=== PATIENT | male | born 1985 | race African-American/Black ===

== ENCOUNTER 2018-02-03 22:48 | Emergency (ER) | payer OTHER ==
[2018-02-03 22:56] VITALS: BP 148/78; PULSE 78; RESP 18; TEMP 99.3
--- NOTE | 2018-02-03 23:04 | ED ---
General Adult HPI - General Chief complaint: GI Bleed Stated complaint: blood in stool Time Seen by Provider: 02/03/18 23:03 Source: patient Mode of arrival: ambulatory Limitations: no limitations - History of Present Illness Initial comments: Alfredo is a previously healthy 32-year-old obese -[place] male who presents the emergency department today for evaluation of a single episode of bright red blood per rectum. Alfredo reports that he was in his usual state of health throughout the day today. He had no abdominal pain, he ate his usual diet. He states that this evening he was straining to have a bowel movement. He reports that he usually has to strain a little bit to have a bowel movement. He states that it was not painful but when he wiped he noted there is some dark blood. He took a picture of this and then came to the ER for further evaluation. Patient denies any chest pain, palpitations, lightheadedness, nausea or vomiting. He has no history of GI bleeding the past. He has never been seen by rn surgery icu. He is not on any anticoagulant or antiplatelet medications. Patient denies any receptive anal intercourse or rectal pain. - Related Data Home Medications Medication Instructions Recorded Confirmed Acyclovir Unknown Dose 1 tab PO DAILY 02/03/16 02/07/16 Previous Rx's Medication Instructions Recorded HYDROcodone/APAP 5-325MG [[place] 1 - 2 tab PO Q6HR PRN #20 tab 02/03/16 5-325] Allergies Allergy/AdvReac Type Severity Reaction Status Date / Time No Known Allergies Allergy Verified 02/03/18 22:56 Review of Systems ROS Statement: Those systems with pertinent positive or pertinent negative responses have been documented in the HPI. ROS Other: All systems not noted in ROS Statement are negative. Respiratory: Denies: dyspnea Cardiovascular: Denies: chest pain, palpitations Endocrine: Denies: fatigue Gastrointestinal: Denies: abdominal pain, nausea, vomiting, diarrhea, constipation, hematemesis, melena Musculoskeletal: Denies: back pain Neurological: Denies: weakness Hematological/Lymphatic: Denies: easy bleeding, easy bruising Past Medical History Additional Past Medical History / Comment(s): shingles, History of Any Multi-Drug Resistant Organisms: None Reported Past Surgical History: No Surgical Hx Reported Past Psychological History: No Psychological Hx Reported Smoking Status: Current every day smoker Past Alcohol Use History: Daily Past Drug Use History: Marijuana General Exam Limitations: no limitations General appearance: alert, in no apparent distress Head exam: Present: atraumatic, normocephalic Eye exam: Present: normal appearance, PERRL ENT exam: Present: normal exam Neck exam: Present: full ROM Respiratory exam: Absent: respiratory distress Cardiovascular Exam: Present: regular rate GI/Abdominal exam: Absent: distended Rectal exam: Present: hemorrhoids. Absent: black stool, fecal impaction, mass, tenderness exam: Present: normal inspection Extremities exam: Present: full ROM Back exam: Present: normal inspection Neurological exam: Present: alert, oriented X3, normal gait Psychiatric exam: Present: normal affect, normal mood Skin exam: Present: warm, dry, normal color. Absent: petechiae, pallor Course Vital Signs 02/03/18 22:52 Temperature 99.3 F Pulse Rate 78 Respiratory 18 Rate Blood Pressure 148/78 O2 Sat by Pulse 97 Oximetry Medical Decision Making - Medical Decision Making The patient was seen and evaluated, patient was able to provide me with a photograph of the dark blood clot that he saw upon wiping after having a bowel movement. Patient with no further bleeding, no pain, no discomfort, normal vital signs, not on any anticoagulant antiplatelet medications Patient initially declined a rectal exam as he was very clearly uncomfortable with this. I advised the patient that I need to evaluate for any rectal tears or bleeding. Patient agreed. Rectal exam reveals hemorrhoids, no active bleeding on exam Based on the patient's history and physical I have a high suspicion that this is rectal bleeding secondary to internal hemorrhoids. I discussed with the patient that this is likely secondary to chronic constipation as the patient does admit that he has very firm bowel movements and has to strain to have bowel movements. We discussed dietary modifications, stool softeners and a plan to follow up with primary care or see a rn surgery icu if this persists. I advised the patient that if he develops any persistent bleeding, lightheadedness, chest pain, palpitations, shortness of breath or any new or concerning symptoms he should return to the emergency department for reevaluation. Offered to perform labs including CBC to evaluate for hemoglobin in this patient however he declined stating he had only a single episode of blood loss and doesn't feel as indicated this time. Agree that there is no indication for further evaluation with labs and patient is stable for discharge home. Disposition Clinical Impression: Hemorrhoids Disposition: HOME SELF-CARE Condition: Good Instructions: Hemorrhoids (ED), Rectal Bleeding (ED) Is patient prescribed a controlled substance at d/c from ED?: No Referrals: None,Stated [Primary Care Provider] - 1-2 days Martita Fabian MD [STAFF PHYSICIAN] - 1-2 days Time of Disposition: 23:11
== END 2018-02-03 23:30 | disposition home or self-care (01) ==
LOC: EC 22:48
DX: K64.8 Other hemorrhoids (principal); F17.200 Nicotine dependence, unspecified, uncomplicated
CPT/HCPCS: 99283